=== PATIENT | male | born 1975 | race Asian ===

== ENCOUNTER 2018-07-29 22:43 | Emergency (ER) | payer OTHER ==
[2018-07-29 22:50] VITALS: BP 109/61; PULSE 80; TEMP 97.2; BMI 29.2
--- NOTE | 2018-07-29 22:54 | PDOC ---
History of Present Illness - General Chief Complaint: Weakness Stated Complaint: WEAKNESS History Source: Patient, Family Exam Limitations: No Limitations - History of Present Illness Initial Comments: 07/29/18 23:13 Patient is a 42 year old male who denies significant medical history presents after a syncopal episode at home, witnessed by his family. 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 Patient states that he was sitting in chair eating dinner approx 10PM when he rested his head upon his arm on the table. He states that he went into deep sleep, however awoke on the floor , surrounded by his family. His son at bedside affirms that patient became pale , and unresponsive for aprrox 5 minutes. No tremors, no bowel or bladder incontinence noted. Patient denies past occurrence of similar symptoms. He denies prodromal or present flushing, chest pain, palpitations, lightheadedness , shortness of breath, abdominal pain, nausea vomiting. Patient had recent stress test in 2018 which showed normal exercise EKG without ischemic changes. PMH: denies PSH: denies Family history Mother: alive and well, denies significant medical history Father: killed in home country, denies significant medical history Medications: Ibuprofen, Vitamin D Allergies: NKDA Social: Lives with and children at home. 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 Denies cigarette smoking, alcohol use, illicit drug use. Timing/Duration: 1 hour Past History - Travel Traveled outside of the country in the last 30 days: No - Past Medical History Allergies/Adverse Reactions: Allergies Allergy/AdvReac Type Severity Reaction Status Date / Time No Known Allergies Allergy Verified 07/29/18 22:50 Home Medications: Ambulatory Orders NK [No Known Home Medication] 07/30/18 COPD: No - Suicide/Smoking/Psychosocial Hx Smoking History: Never smoked Review of Systems - Review of Systems Able to Perform ROS?: Yes Constitutional: Yes: Weakness, Other (patient endorses he feels tired). No: Chills, Diaphoresis, Fever HEENTM: No: Blurred Vision, Throat Swelling, Difficulty Swallowing Respiratory: No: Cough, Orthopnea, Shortness of Breath, Stridor, Wheezing, Productive cough Cardiac (ROS): No: Chest Pain, Edema, Irregular Heart Rate, Palpitations ABD/GI: No: Abdominal Distended, Blood Streaked Bowels, Diarrhea, Nausea, Rectal Bleeding, Vomiting : No: Burning, Dysuria, Hematuria Neurological: Yes: Other (loss of consciousness ). No: Headache, Numbness, Paresthesia, Tingling, Weakness *Physical Exam - Vital Signs Last Vital Signs Temp Pulse Resp BP Pulse Ox 97.2 F L 80 18 109/61 100 07/29/18 22:49 07/29/18 22:49 07/29/18 22:49 07/29/18 22:49 07/29/18 22:49 - Physical Exam General Appearance: Yes: Nourished, Appropriately Dressed. No: Apparent Distress HEENT: positive: EOMI, NOLA, Other (no tongue bite lesions ). negative: Scleral Icterus (R), Scleral Icterus (L), Pharyngeal Erythema Neck: positive: Supple. negative: Carotid bruit, Stridor, Lymphadenopathy (R), Lymphadenopathy (L) Respiratory/Chest: positive: Lungs Clear, Normal Breath Sounds. negative: Respiratory Distress, Accessory Muscle Use, Labored Respiration, Crackles, Rales , Rhonchi, Stridor, Wheezing Cardiovascular: positive: Regular Rhythm, Regular Rate, S1, S2. negative: Murmur, Tachycardia Gastrointestinal/Abdominal: positive: Normal Bowel Sounds, Flat, Soft. negative : Organomegaly, Distended, Guarding, Rebound, Tenderness Extremity: positive: Normal Range of Motion. 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 EKG, troponins CBC, CMP CT head without contrast STAT Fingerstick blood glucose; 100mg/ dL Troponin 0.02 EKG shows normal sinus rhythm, no ischemic changes noted. Patient had negative stress test in 2014. CBC, CMP unremarkable CT head negative for acute intracranial pathology Patient to be discharged home. Counselled to maintain appropriate hydration. Patient in agreement with plan. All questions, concerns addressed and answered. *DC/Admit/Observation/Transfer Diagnosis at time of Disposition: Dehydration - Discharge Dispostion Disposition: HOME Condition at time of disposition: Stable Decision to Admit order: No - Referrals Referrals: Landon Mera MD [Primary Care Provider] - - Patient Instructions Printed Discharge Instructions: DI for Dehydration -- Adult Additional Instructions: You were seen in the Emergency Department for dehydration. Your blood work and CT scan were within normal limits. You are being discharged home. It is important that you remain well hydrated. Follow up with your primary care physician within one- two days of discharge. Return to the nearest Emergency Department if you experience worsening symptoms , subjective fevers, chills, shortness of breath, chest pain, palpitations, abdominal pain, nausea, vomiting, fall, loss of consciousness, any trauma. - Post Discharge Activity
[2018-07-29 23:34] LABS: HEMATOCRIT 42.3 % (35.4-49); HEMOGLOBIN 14.3 GM/dL (11.7-16.9); MCH 29.1 pg (25.7-33.7); MCHC 33.8 g/dl (32.0-35.9); MEAN CELL VOLUME 85.8 fl (80-96); MEAN PLT VOLUME 8.2 fl (7.5-11.1); PLATELET COUNT 188 K/MM3 (134-434); RBC 4.93 M/mm3 (4.00-5.60); RDW 12.1 % (11.9-15.9); WHITE BLOOD COUNT 6.1 K/mm3 (4.0-10.0)
[2018-07-30 00:18] LABS: ALBUMIN 4.2 g/dl (3.4-5.0); ALK PHOS 52 U/L (45-117); ANION GAP 9 MMOL/L (8-16); BLOOD UREA NITROGEN 18 mg/dL (7-18); CALCIUM 8.9 mg/dL (8.5-10.1); CHLORIDE 106 mmol/L (98-107); CO2 24 mmol/L (21-32); GLUCOSE,RANDOM 115 mg/dL (74-106); POTASSIUM 4.2 mmol/L (3.5-5.1); SGOT/AST 28 U/L (15-37); SGPT/ALT 21 U/L (13-61); SODIUM 139 mmol/L (136-145)
[2018-07-30] MEDS ORDERED: SODIUM CHLORIDE 1,000 ML IV STA (01:25)
--- NOTE | 2018-07-30 03:13 | PDOC ---
Documentation entered by Paulo Rust SCRIBE, acting as scribe for Zaynab Hyde MD. Zaynab Hyde MD: This documentation has been prepared by the Barrera raygoza Daniel, SCRIBE, under my direction and personally reviewed by me in its entirety. I confirm that the documentation accurately reflects all work, treatment, procedures, and medical decision making performed by me. Attending Attestation - Resident Resident Name: Med Timmons - ED Attending Attestation I have performed the following: I have examined & evaluated the patient, The case was reviewed & discussed with the resident, I agree w/resident's findings & plan - HPI HPI: 07/30/18 00:34 The patient is a 42 year old male with no past medical history here today for evaluation of a syncopal episode. The patient reports that he has been fasting for Ramadan and has not been sleeping well lately. He reports that he was sitting on a chair eating tonight when he woke up on the ground. The patients family reports that he was out for approximately 5 minutes, that he hit his head , and that he had no shaking, tremors, or urinary incontinence. Patient denies headache, lightheadedness. Denies fever, chills. Denies chest pain, shortness of breath. Denies nausea, vomiting, diarrhea, abdominal pain. Allergies: NKA PCP: Landon Mera - Medical Decision Making 07/30/18 02:21 Patient Name: BERTA SEGURA THIS IS A PRELIMINARY REPORT FROM [facility] DATE OF SERVICE: 2018-07-29 23:45:53 IMAGES: [id number] EXAM: HEAD CT WITHOUT CONTRAST HISTORY: Patient fell COMPARISON: None. FINDINGS: Normal brain. No acute intracranial abnormality. No hemorrhage. Osseous structures are intact.
--- NOTE | 2018-07-30 10:59 | EKG ---
Test Reason : Blood Pressure : / mmHG Vent. Rate : 077 BPM Atrial Rate : 077 BPM P-R Int : 168 ms QRS Dur : 094 ms QT Int : 382 ms P-R-T Axes : 039 014 017 degrees QTc Int : 432 ms NORMAL SINUS RHYTHM POSSIBLE LEFT ATRIAL ENLARGEMENT INCOMPLETE RBBB NO PREVIOUS ECGS AVAILABLE Confirmed by COURTNEY SCHULER MD ([id number]) on 07/30/2018 10:59:00 AM Referred By: Confirmed By:COURTNEY SCHULER MD
== END 2018-07-30 02:58 | disposition home or self-care (01) ==
LOC: JER 22:43
PROC: 3E0337Z Introduction of Electrolytic and Water Balance Substance into Peripheral Vein, Percutaneous Approach (ICD-10-PCS; principal; 2018-07-29)
DX: E86.0 Dehydration (principal)
CPT/HCPCS: 36415; 70450-TC; 80053; 82550; 82553; 82962; 84484; 85027; 93005; 93010; 99283-25; J7030